=== PATIENT | female | born 1930 | race Hispanic/Latino ===

== ENCOUNTER 2018-03-26 14:42 | Emergency (ER) | payer MEDICARE ==
[~2018-03-26 14:42] MED LIST: AEC81 PO; CLOP75TA14 PO; GLIP5TAB11 PO; METO50TA9 PO; ROSU40 GT
[2018-03-26] MEDS ORDERED: ASPIRIN 325 MG TABLET ONE (15:13)
[2018-03-26 15:23] LABS: BASOPHILS % (AUTO) 0.8 % (0.0-5.0); HEMATOCRIT 38.1 % (36-48); LYMPHOCYTES % (AUTO) 34.2 % (21.0-51.0); MEAN CORPUSCULAR HEMOGLOBIN 32.9 pg (27.0-33.0); MEAN CORPUSCULAR HGB CONC 34.3 g/dL (32.0-36.0); MEAN CORPUSCULAR VOLUME 95.9 fL (79-99); MONOCYTES % (AUTO) 6.2 % (3.0-13.0); NEUTROPHILS % (AUTO) 56.8 % (40.0-77.0); NUCLEATED RED BLOOD CELLS 0.1 % (0.0-0.19); PLATELET COUNT (AUTO) 164 K/uL (130-400); RED BLOOD CELL COUNT(AUTO) 3.97 MIL/uL (4.00-5.50); RED CELL DISTRIBUTION WIDTH 12.6 % (11.0-15.5); WHITE BLOOD COUNT (AUTO) 9.1 K/uL (4.8-10.8)
[2018-03-26 15:38] LABS: INR 0.94 (0.85-1.15); PARTIAL THROMBOPLASTIN TIME 25.9 SEC (26.3-35.5); PROTHROMBIN TIME 9.9 SEC (9.6-11.6)
[2018-03-26 15:47] LABS: ALBUMIN 3.4 g/dL (3.5-5.0); BILIRUBIN,TOTAL 0.7 mg/dL (0.2-1.0); CREATININE 2.1 mg/dL (0.5-1.5); TOTAL PROTEIN, SERUM 7.1 g/dL (6.0-8.3)
[2018-03-26 16:01] LABS: CREATINE KINASE MB 0.8 ng/mL (0.5-3.6)
[2018-03-26] MEDS ORDERED: INSULIN HUMULIN R 100 UNIT/ML 3ML ONE (16:06)
== END 2018-03-26 19:12 | disposition home or self-care (01) ==
LOC: EDH 14:42
DX: R51 Headache (principal); E11.65 Type 2 diabetes mellitus with hyperglycemia; I25.10 Atherosclerotic heart disease of native coronary artery without angina pectoris; E78.5 Hyperlipidemia, unspecified; M19.90 Unspecified osteoarthritis, unspecified site
CPT/HCPCS: 36415; 70450; 71045; 80053; 82550; 82553; 82948; 83874; 84484; 85025; 85610; 85730; 93005; 94761; 96374; 99285; J1815

== ENCOUNTER 2018-10-30 17:53 | Emergency (ER) | payer MEDICARE ==
[2018-10-30 18:24] LABS: BASOPHILS % (AUTO) 1.4 % (0.0-5.0); EOSINOPHILS % (AUTO) 1.8 % (0.0-8.0); HEMATOCRIT 42.2 % (36-48); LYMPHOCYTES % (AUTO) 26.4 % (21.0-51.0); MEAN CORPUSCULAR HGB CONC 33.6 g/dL (32.0-36.0); MEAN CORPUSCULAR VOLUME 95.5 fL (79-99); MONOCYTES % (AUTO) 6.7 % (3.0-13.0); NEUTROPHILS % (AUTO) 63.7 % (40.0-77.0); NUCLEATED RED BLOOD CELLS 0.1 % (0.0-0.19); PLATELET COUNT (AUTO) 185 K/uL (130-400); RED BLOOD CELL COUNT(AUTO) 4.42 MIL/uL (4.00-5.50); RED CELL DISTRIBUTION WIDTH 13.3 % (11.0-15.5); WHITE BLOOD COUNT (AUTO) 10.1 K/uL (4.8-10.8)
[2018-10-30 18:34] LABS: CREATININE 1.7 mg/dL (0.5-1.5); POTASSIUM 3.8 mmol/L (3.5-5.1)
[2018-10-30] MEDS ORDERED: ACETAMINOPHEN 325 MG TAB ONE (18:34)
[2018-10-30 18:38] LABS: ALBUMIN 3.7 g/dL (3.5-5.0); BILIRUBIN,TOTAL 0.8 mg/dL (0.2-1.0); TOTAL PROTEIN, SERUM 7.8 g/dL (6.0-8.3)
== END 2018-10-30 21:25 | disposition home or self-care (01) ==
LOC: EDH 17:53
DX: G44.209 Tension-type headache, unspecified, not intractable (principal); F03.90 Unspecified dementia, unspecified severity, without behavioral disturbance, psychotic disturbance, mood disturbance, and anxiety; I10 Essential (primary) hypertension; E10.9 Type 1 diabetes mellitus without complications; I25.10 Atherosclerotic heart disease of native coronary artery without angina pectoris; M19.90 Unspecified osteoarthritis, unspecified site; Z79.4 Long term (current) use of insulin
CPT/HCPCS: 36415; 80053; 84484; 85025; 93005

== ENCOUNTER 2019-05-15 21:36 | Inpatient (IN) | payer MEDICARE | END 2019-05-18 18:58 | disposition home or self-care (01) | LOC: EDH 21:36 → 3CH 05-16 00:48 → EDHIP 23:00 | DX: I25.110 Atherosclerotic heart disease of native coronary artery with unstable angina pectoris (principal); R07.9 Chest pain, unspecified; Z79.4 Long term (current) use of insulin; E11.65 Type 2 diabetes mellitus with hyperglycemia; R06.00 Dyspnea, unspecified ==

== ENCOUNTER 2019-10-17 | Observation (INO) | payer MEDICARE ==
[~2019-10-17] VITALS: Ht 149.9 cm; Wt 64.5 kg
[~2019-10-17] MED LIST changes: +ACET325C3 PO; +AMLO5TAB9 PO; +ASPI-555 PO; +DONE10TA43 PO; +FURO20TA4 PO; +GABA-529 PO; +INSU100I26 SQ; +LEVO50TA11 PO; +MEMA10TA55 PO; +POTA10TA14 PO; +QUET100T70 PO; +TRAZ-185 PO
[2019-10-17 00:39] LABS: BASOPHILS % (AUTO) 0.4 % (0.0-5.0); EOSINOPHILS % (AUTO) 3.3 % (0.0-8.0); HEMATOCRIT 36.8 % (36-48); LYMPHOCYTES % (AUTO) 49.7 % (21.0-51.0); MEAN CORPUSCULAR HEMOGLOBIN 31.7 pg (27.0-33.0); MEAN CORPUSCULAR VOLUME 93.4 fL (79-99); MONOCYTES % (AUTO) 6.5 % (3.0-13.0); PLATELET COUNT (AUTO) 153 K/uL (130-400); RED BLOOD CELL COUNT(AUTO) 3.94 MIL/uL (4.00-5.50); RED CELL DISTRIBUTION WIDTH 12.3 % (11.0-15.5); WHITE BLOOD COUNT (AUTO) 7.3 K/uL (4.8-10.8)
[2019-10-17 00:47] LABS: CREATININE 1.7 mg/dL (0.5-1.5); POTASSIUM 4.7 mmol/L (3.5-5.1)
[2019-10-17 00:52] LABS: ALBUMIN 3.3 g/dL (3.5-5.0); BILIRUBIN,TOTAL 0.5 mg/dL (0.2-1.0); INR 0.92 (0.85-1.15); PARTIAL THROMBOPLASTIN TIME 21.2 SEC (26.3-35.5); PROTHROMBIN TIME 9.7 SEC (9.6-11.6); TOTAL PROTEIN, SERUM 7.7 g/dL (6.0-8.3)
[2019-10-17] MEDS ORDERED: HYOSCYAMINE SULFATE 0.125 MG TAB.SUBL SL ONE (01:13)
[2019-10-17 01:14] LABS: APPEARANCE,URINE Cloudy (CLEAR); BILIRUBIN,URINE Negative (NEGATIVE); COLOR,URINE Yellow (YELLOW); GLUCOSE, URINE (UA) 500 mg/dL (NEGATIVE); KETONES,URINE Negative (NEGATIVE); LEUKOCYTE ESTERASE ,URINE Moderate (NEGATIVE); NITRATE,URINE Negative (NEGATIVE); OCCULT BLOOD,URINE Negative (NEGATIVE); PH,URINE 6.5 (5.0-8.0); PROTEIN,URINE Negative (NEGATIVE); UROBILINOGEN,URINE 0.2 mg/dL (0.2-1.0)
[2019-10-17] MEDS ORDERED: FAMOTIDINE/PF 20 MG/2 ML VIAL IV ONE (01:14)
[2019-10-17 01:27] LABS: BACTERIA,URINE Few /HPF (None Seen); RBC,URINE None Seen /HPF (0-1); SQUAMOUS EPITHELIAL CELL,UR Few /HPF (0-2); YEAST,URINE BUDDING None Seen /HPF (None Seen)
[2019-10-17] MEDS ORDERED: CEFTRIAXONE SODIUM 1 GM ONE (01:27)
[2019-10-17] MEDS ORDERED: ZOSYN 3.375GM+NS 50ML 50 ML IV ONE ×2 (04:38→10:28)
[2019-10-17] MEDS ORDERED: SODIUM CHLORIDE 0.9% 1000ML 1,000 ML IV ONE (04:39)
[2019-10-17 05:23] VITALS: BP 140/83
--- NOTE | 2019-10-17 05:23 | NUR ---
Admission note: Admitted to floor via stretcher. AOx 3. Placed in bed according to pt. comfort. VS checked and recorded. Assessment done. ( see CPOE flow chart for full assessment). Plan of care initiated. Attached to Telemetry at bedside with SR result. Oriented to room and used of call light. Policies and procedures explained. Verbalized understanding. Home meds resumed as ordered.Kept monitored and observed for any unusualities. Denies feeling pain. No apparent distress noted. Endorsed to AM shift accordingly.
[2019-10-17] MEDS ORDERED: ACETAMINOPHEN 325 MG TAB PO PRN ×2 (05:45→06:45)
[2019-10-17] MEDS ORDERED: TRAZODONE HCL 50 MG TAB PO SCH (05:45)
[2019-10-17] MEDS ORDERED: ONDANSETRON HCL 4 MG/2 ML VIAL IVP PRN (06:45)
[2019-10-17] MEDS: LEVOTHYROXINE 50 MCG TABLET PO SCH (06:48)
[2019-10-17] MEDS: SODIUM CHLORIDE 0.9% 1000ML 1,000 ML IV SCH ×2 (07:00→09:42)
[2019-10-17 08:00] VITALS: BP 128/80
[2019-10-17] MEDS: POTASSIUM CHLORIDE 10 MEQ/TAB.SA PO SCH (10:15)
[2019-10-17] MEDS: MEMANTINE HCL 5 MG TABLET PO SCH ×2 (10:15→21:11)
[2019-10-17] MEDS: AMLODIPINE BESYLATE 5 MG TAB PO SCH (10:15)
[2019-10-17] MEDS: DONEPEZIL HCL 5 MG TAB PO SCH (10:15)
[2019-10-17] MEDS: FUROSEMIDE 20 MG TABLET PO SCH (10:16)
[2019-10-17] MEDS: FAMOTIDINE 20MG TAB 20 MG TAB PO SCH (10:16)
[2019-10-17] MEDS: ASPIRIN 81 MG EC TAB PO SCH (10:16)
[2019-10-17] MEDS: GLIPIZIDE 5 MG TABLET PO SCH ×2 (10:16→21:11)
[2019-10-17] MEDS: INSULIN GLARGINE 100 UNITS/ML 10 ML VIAL SQ SCH (10:22)
[2019-10-17 11:45] VITALS: BP 146/79
[2019-10-17] MEDS: ZOSYN 3.375GM+NS 50ML 50 ML IV SCH ×2 (12:00→23:52)
--- NOTE | 2019-10-17 14:23 | NUR ---
CHART REVIEWED, TRIGGER FOR CM SEEN, RE READMISSION FAMILY STATES NO RECENT HOSPITALIZATIONS
[2019-10-17 16:00] VITALS: BP 136/79
[2019-10-17] MEDS: INSULIN HUMULIN R 100 UNIT/ML 3ML SQ SCH ×2 (16:38→21:18)
[2019-10-17 19:58] VITALS: BP 123/81
[2019-10-17] MEDS ORDERED: GABAPENTIN 100 MG CAPSULE PO SCH (21:00)
[2019-10-17] MEDS ORDERED: QUETIAPINE FUMARATE 100 MG TAB PO SCH (21:00)
[2019-10-18 00:29] VITALS: BP 111/58
[2019-10-18] MEDS: SODIUM CHLORIDE 0.9% 1000ML 1,000 ML IV SCH (03:00)
[2019-10-18 04:44] LABS: HEMATOCRIT 37.5 % (36-48); MEAN CORPUSCULAR HGB CONC 33.1 g/dL (32.0-36.0); MEAN CORPUSCULAR VOLUME 93.8 fL (79-99); PLATELET COUNT (AUTO) 162 K/uL (130-400); RED CELL DISTRIBUTION WIDTH 12.3 % (11.0-15.5); WHITE BLOOD COUNT (AUTO) 7.3 K/uL (4.8-10.8)
[2019-10-18 04:51] LABS: HEMOGLOBIN A1C 9.3 % (4.0-6.0)
[2019-10-18 04:55] LABS: CREATININE 1.8 mg/dL (0.5-1.5); POTASSIUM 3.8 mmol/L (3.5-5.1)
[2019-10-18 05:12] VITALS: BP 134/73
[2019-10-18] MEDS: LEVOTHYROXINE 50 MCG TABLET PO SCH (06:29)
[2019-10-18] MEDS: INSULIN HUMULIN R 100 UNIT/ML 3ML SQ SCH (06:43)
[2019-10-18 08:00] VITALS: BP 136/78
[2019-10-18] MEDS: FAMOTIDINE 20MG TAB 20 MG TAB PO SCH (09:42)
[2019-10-18] MEDS: ASPIRIN 81 MG EC TAB PO SCH (09:42)
[2019-10-18] MEDS: POTASSIUM CHLORIDE 10 MEQ/TAB.SA PO SCH (09:43)
[2019-10-18] MEDS: DONEPEZIL HCL 5 MG TAB PO SCH (09:43)
[2019-10-18] MEDS: GLIPIZIDE 5 MG TABLET PO SCH (09:43)
[2019-10-18] MEDS: MEMANTINE HCL 5 MG TABLET PO SCH (09:44)
[2019-10-18] MEDS: AMLODIPINE BESYLATE 5 MG TAB PO SCH (09:44)
[2019-10-18] MEDS: FUROSEMIDE 20 MG TABLET PO SCH (09:44)
--- NOTE | 2019-10-18 09:50 | NUR ---
DC PLAN MEET WITH PATIENT AND FAMILY IN ROOM. DAUGHTER STATES PATIENT IS FORGETFUL AND WILL ANSWER YES TO EVERYTHING. PER DAUGHTER, PATIENT IS SEMI-INDEPENDENT WITH ADLS, LIVES ALONE IN APARTMENT BUT DAUGHTERS AND SONS TAKE SHIFTS TO BE WITH HER. PER DAUGHTER, SHE HAS 24HR CARE WITH FAMILY. NO FALLS PER DAUGHTER. HAS OXYGEN AND SHOWER CHAIR IN USE. PER DAUGHTER, FEELS SAFE TO CONTINUE CARE AT HOME AFTER HOSPITAL DISCHARGE. Addendum: 10/18/19 at 0952 by FRIEDA CANALES RN CM Amended: Links added.
[2019-10-18] MEDS: INSULIN GLARGINE 100 UNITS/ML 10 ML VIAL SQ SCH (10:05)
--- NOTE | 2019-10-18 11:54 | NUR ---
PT D/C HOME USING TEACH BACK TECHNIQUE RE; NEW MEDS, HOME MEDS, S/S TO WATCH FOR AND WHEN TO CALL MD OR 911. follow up with your primary doctor in 2-4 days for transition of care, may go as a walk in or call to set up an appointment. if abdominal pain is to occur call your primary doctor, if fevers chills or trouble urinating call your doctor it could mean pancreatitis or urinary tract infection has re-occured. continue full course of antibiotic therapy to prevent super infections if prescribed by your doctor. IV OUT INTACT, NO BLEEDING, NO DISTRESS, AAOX3, DAUGHTER TAVO; DENIES ANY QUESTIONS.
== END 2019-10-18 11:53 | disposition home or self-care (01) ==
LOC: EDH → EDHIP 04:05 → 4CH 05:23
PROVIDERS: ADMIT Internal Medicine Critical Care Medicine; ATTEND Internal Medicine Critical Care Medicine
DX: N39.0 Urinary tract infection, site not specified (principal); E11.65 Type 2 diabetes mellitus with hyperglycemia; E86.0 Dehydration; B96.20 Unspecified Escherichia coli [E. coli] as the cause of diseases classified elsewhere; I10 Essential (primary) hypertension; E78.5 Hyperlipidemia, unspecified; M81.0 Age-related osteoporosis without current pathological fracture; I25.10 Atherosclerotic heart disease of native coronary artery without angina pectoris; F03.90 Unspecified dementia, unspecified severity, without behavioral disturbance, psychotic disturbance, mood disturbance, and anxiety; M19.90 Unspecified osteoarthritis, unspecified site; J84.10 Pulmonary fibrosis, unspecified; Z99.81 Dependence on supplemental oxygen; Z95.5 Presence of coronary angioplasty implant and graft; Z79.02 Long term (current) use of antithrombotics/antiplatelets; Z79.82 Long term (current) use of aspirin; Z79.84 Long term (current) use of oral hypoglycemic drugs; Z79.890 Hormone replacement therapy; Z79.899 Other long term (current) drug therapy
CPT/HCPCS: 36415 ×2; 71045; 74176; 76705; 80048; 80053; 81001; 82150; 82550; 82948 ×5; 83036; 83690 ×2; 84484; 85025; 85027; 85610; 85730; 87077; 87088; 87186; 93005; 96365; 96366; 96372 ×2; 99284; G0378 ×32; J0696; J1815 ×2; J2543 ×3; J3490; J7030 ×2

== ENCOUNTER 2019-11-22 15:49 | Emergency (ER) | payer MEDICARE ==
[~2019-11-22 15:49] MED LIST changes: -AEC81 PO; -CLOP75TA14 PO; -METO50TA9 PO; -ROSU40 GT
[2019-11-22 16:31] LABS: APPEARANCE,URINE Cloudy (CLEAR); BILIRUBIN,URINE Negative (NEGATIVE); COLOR,URINE Yellow (YELLOW); GLUCOSE, URINE (UA) >=1000 mg/dL (NEGATIVE); KETONES,URINE Negative (NEGATIVE); LEUKOCYTE ESTERASE ,URINE Small (NEGATIVE); NITRATE,URINE Negative (NEGATIVE); OCCULT BLOOD,URINE Small (NEGATIVE); PH,URINE 6.5 (5.0-8.0); PROTEIN,URINE Negative (NEGATIVE)
[2019-11-22 16:38] LABS: BACTERIA,URINE Few /HPF (None Seen)
[2019-11-22 16:38] LABS: BASOPHILS % (AUTO) 0.3 % (0.0-5.0); EOSINOPHILS % (AUTO) 0.5 % (0.0-8.0); HEMATOCRIT 39.9 % (36-48); LYMPHOCYTES % (AUTO) 8.7 % (21.0-51.0); MEAN CORPUSCULAR HEMOGLOBIN 31.5 pg (27.0-33.0); MEAN CORPUSCULAR HGB CONC 33.8 g/dL (32.0-36.0); MONOCYTES % (AUTO) 3.6 % (3.0-13.0); NEUTROPHILS % (AUTO) 86.5 % (40.0-77.0); PLATELET COUNT (AUTO) 155 K/uL (130-400); RED BLOOD CELL COUNT(AUTO) 4.29 MIL/uL (4.00-5.50); RED CELL DISTRIBUTION WIDTH 12.4 % (11.0-15.5); WHITE BLOOD COUNT (AUTO) 13.5 K/uL (4.8-10.8)
[2019-11-22 16:39] LABS: RBC,URINE 0-1 /HPF (0-1); SQUAMOUS EPITHELIAL CELL,UR 0-2 /HPF (0-2)
[2019-11-22 16:40] LABS: YEAST,URINE BUDDING Rare /HPF (None Seen)
[2019-11-22 17:01] LABS: INR 0.95 (0.85-1.15); PARTIAL THROMBOPLASTIN TIME 27.5 SEC (26.3-35.5)
[2019-11-22 17:08] LABS: ALANINE AMINOTRANSFERASE 16 U/L (12-78); ALBUMIN 3.4 g/dL (3.5-5.0); ASPARTATE AMINOTRANSFERASE 20 U/L (10-37); BILIRUBIN,TOTAL 0.9 mg/dL (0.2-1.0); CARBON DIOXIDE 27 mmol/L (21-32); CHLORIDE 95 mmol/L (101-111); CREATINE KINASE, TOTAL 169 U/L (21-232); CREATININE 1.9 mg/dL (0.5-1.5); GLOMERULAR FILTR. RATE CALC 27 mL/min (>60); MYOGLOBIN 65 ng/mL (10-92); POTASSIUM 4.3 mmol/L (3.5-5.1); SODIUM SERUM 133 mmol/L (136-145); TOTAL PROTEIN, SERUM 8.3 g/dL (6.0-8.3); TROPONIN I < 0.04 ng/mL (0.00-0.06); UREA NITROGEN, BLOOD 27 mg/dL (7-18)
[2019-11-22 17:14] LABS: GLUCOSE,RANDOM 440 mg/dL (70-105)
[2019-11-22] MEDS ORDERED: CEFTRIAXONE SODIUM 1 GM ONE (17:53)
[2019-11-22] MEDS ORDERED: SODIUM CHLORIDE 0.9% 1000ML 1,000 ML IV ONE (17:54)
[2019-11-22] MEDS ORDERED: IPRATROPIUM/ALBUTEROL SULFATE 3 ML SOLUTION IH ONE (18:02)
[2019-11-22] MEDS ORDERED: ACETAMINOPHEN 325 MG TAB ONE (20:05)
== END 2019-11-22 21:21 | disposition home or self-care (01) ==
LOC: EDH 15:49
DX: J18.9 Pneumonia, unspecified organism (principal); J84.10 Pulmonary fibrosis, unspecified; F03.90 Unspecified dementia, unspecified severity, without behavioral disturbance, psychotic disturbance, mood disturbance, and anxiety; S80.02XA Contusion of left knee, initial encounter; Z79.899 Other long term (current) drug therapy; M19.90 Unspecified osteoarthritis, unspecified site; I25.10 Atherosclerotic heart disease of native coronary artery without angina pectoris; E11.9 Type 2 diabetes mellitus without complications; E78.5 Hyperlipidemia, unspecified; I10 Essential (primary) hypertension; Z87.891 Personal history of nicotine dependence; W18.39XA Other fall on same level, initial encounter; Y93.89 Activity, other specified; Y92.89 Other specified places as the place of occurrence of the external cause; Y99.8 Other external cause status
CPT/HCPCS: 36415; 71045; 73562; 80053; 81001; 82550; 83605 ×2; 83874; 84145; 84484; 85025; 85610; 85730; 87040 ×2; 87077; 87088; 87186; 87804 ×2; 93005; 99285; J0696; J7030